=== PATIENT | female | born 1950 | race African-American/Black ===

== ENCOUNTER → 2016-07-23 | Outpatient (CLI) | payer MEDICARE | END | disposition home or self-care (01) | LOC: PCVCIMAG 13:40 | PROVIDERS: ATTEND Internal Medicine | DX: I42.9 Cardiomyopathy, unspecified (principal); I50.9 Heart failure, unspecified; I10 Essential (primary) hypertension; E78.5 Hyperlipidemia, unspecified; I08.0 Rheumatic disorders of both mitral and aortic valves; L40.50 Arthropathic psoriasis, unspecified | CPT/HCPCS: 80061; 93005; 93306; G0463 ==